=== PATIENT | male | born 1950 | race Caucasian/White ===

== ENCOUNTER 2017-04-30 19:57 | Emergency (ER) | payer MEDICARE ==
[~2017-04-30] VITALS: Ht 167.6 cm; Wt 103.7 kg
[2017-04-30 19:59] VITALS: BP 144/83
== END 2017-04-30 21:35 | disposition home or self-care (01) ==
LOC: ED 21:00
DX: B37.0 Candidal stomatitis (principal); E11.9 Type 2 diabetes mellitus without complications; E78.5 Hyperlipidemia, unspecified; I10 Essential (primary) hypertension; Z79.82 Long term (current) use of aspirin
CPT/HCPCS: 87081; 87147; 87880; 99284